=== PATIENT | female | born 1990 | race Caucasian/White ===

== ENCOUNTER 2018-03-26 05:07 | Inpatient (IN) | payer OTHER ==
[2018-03-25 08:36] LABS: RPR Titer ND
[2018-03-25 08:38] LABS: Absolute Lymphocytes (CBC) 1.9 K/uL (0.7-4.9); Absolute Monocytes 0.6 K/uL (0.1-1.3); Absolute Neutrophil 7.3 K/uL (1.8-8.0); Basophils % 0.3 % (0-1.3); Eosinophils % 0.7 % (0-4.4); Lymphocytes % 19.5 % (15.3-44.8); MPV 9.2 fL (7.6-11.3); Monocytes % 6.2 % (3.3-12.3); RBC Red Blood Cell Count 5.53 M/uL (3.86-4.86)
[2018-03-25 08:40] LABS: Urine Appearance TURBID; Urine Bilirubin NEGATIVE (NEG); Urine Blood 2+ (NEG); Urine Color DK YELLOW; Urine Glucose NEGATIVE (NEG); Urine Protein 1+ (NEG); Urine Specific Gravity 1.015 (1.005-1.030)
[2018-03-25 08:45] LABS: Protime INR 0.99
[2018-03-25 08:58] LABS: Blood Morphology Comment NOTED (NOT SEEN); Platelet Estimate ADEQ; Urine White Blood Cell Casts OK
[2018-03-25 08:59] LABS: Anisocytosis 2+; Elliptocytes 1+; Hypochromasia 2+; Polychromasia 1+
[2018-03-25 09:49] LABS: Urine Bacteria LOADED /HPF (<20); Urine Culture Reflex Order REFLEXED
[2018-03-26] MEDS ORDERED: Ringers Lactate 1,000 ML IV PRN (05:56)
[2018-03-26] MEDS ORDERED: FAMOTIDINE 20 MG/2 ML VIAL IV ONE (06:00)
[2018-03-26] MEDS ORDERED: Ringers Lactate 1,000 ML IV SCH (06:00)
[2018-03-26] MEDS ORDERED: NA CIT/CITRIC AC 30 ML ORAL UDC PO ONE (06:13)
[2018-03-26 06:22] VITALS: BMI 39.4
[2018-03-26] MEDS ORDERED: CEFAZOLIN/SWI 2gm 2 GM/20 ML SYR ONE (06:40)
[2018-03-26] MEDS ORDERED: METOCLOPRAMIDE 10 MG/2mL INJ IV SCH (07:00)
[2018-03-26] MEDS ORDERED: CEFAZOLIN 2 GM in NA CHLORIDE 0.9% 100 ML IVPB SCH (07:00)
[2018-03-26] MEDS ORDERED: METHYLERGONOVINE 0.2MG/ML AMP IM ONE ×4 (07:04→20:38)
[2018-03-26] MEDS ORDERED: MORPHINE SULFATE/PF 1 MG/ML (10 ML AMP) ONE ×2 (07:32→07:33)
[2018-03-26] MEDS ORDERED: LIDOCAINE 1% MPF 5 ML VIAL ONE (07:32)
[2018-03-26] MEDS ORDERED: BUPIVACAINE 0.75% (PF) 2 ML SP ONE (07:33)
[2018-03-26] MEDS ORDERED: OXYTOCIN 10 UNIT/ML ML IV ONE (07:43)
[2018-03-26] MEDS ORDERED: EPHEDRINE SULF 50 MG/ML VIAL ONE (08:04)
[2018-03-26] MEDS ORDERED: NS 0.9% VIAL 10 ML ONE (08:04)
[2018-03-26] MEDS ORDERED: Phenylephrine HCl 10 MG/ML 1 ML VIAL ONE ×2 (08:04→08:08)
[2018-03-26] MEDS ORDERED: Oxycodone HCl/Acetaminophen 1 TAB TAB PO PRN (08:10)
[2018-03-26] MEDS ORDERED: ONDANSETRON 4 MG (ODT) TAB PO PRN (08:10)
[2018-03-26] MEDS ORDERED: ACETAMINOPHEN 500 MG TAB PO PRN ×2 (08:10)
[2018-03-26] MEDS ORDERED: KETOROLAC 30 MG/ML INJ IV PRN (08:10)
[2018-03-26] MEDS ORDERED: KETOROLAC 30 MG/ML INJ IM PRN (08:10)
[2018-03-26] MEDS ORDERED: CEFAZOLIN 1GM (PREMIX IV) 1 GM/50 ML BAG IV SCH (08:10)
[2018-03-26] MEDS ORDERED: BISACODYL 10 MG RECTAL SUPP RECT PRN (08:10)
[2018-03-26] MEDS ORDERED: ONDANSETRON 4 MG/2 ML VIAL IV PRN (08:10)
[2018-03-26] MEDS ORDERED: DIPHENHYDRAMINE 25 MG TAB/CAP PO PRN (08:10)
[2018-03-26] MEDS ORDERED: D5LR 1,000 ML with OXYTOCIN 20 UNIT IV SCH ×2 (09:00)
[2018-03-26] MEDS ORDERED: OXYTOCIN/LR 20 UNIT/1,000 ML BAG IV SCH (09:00)
[2018-03-26] MEDS ORDERED: Ringers Lactate 1,000 ML IV ONE (09:08)
[2018-03-26] MEDS ORDERED: PROMETHAZINE 25 MG/ML VIAL IM PRN (09:40)
[2018-03-26] MEDS ORDERED: CEFAZOLIN 2GM (PREMIX IV) 2 GM/50 ML BAG IV SCH (16:00)
[2018-03-26] MEDS ORDERED: CEFAZOLIN 2GM (PREMIX IV) 2 GM/50 ML BAG ONE (16:01)
--- NOTE | 2018-03-26 21:46 | OP ---
Surgeon: Rhett Mack MD Indications: Madeline Lucero, 27-year-old, 2, para 1, previous , for repeat section. Full preoperative counseling concerning procedure and possible complications, including inf ection, blood loss, anesthetic complications, injury to bladder, bowel, ureter, postoperative complic ations, clots, and pneumonia. The patient knows fully well this does not constitute all the possible problems that could occur during or following surgery, and knows with each surgery, risk of complica tions is . Preoperatively, the patient was noted to have anemia, this recurring through e , nonimmune to Rubella, and positive urine culture on 2 occasions, seems to have a resista nt bladder infection. On admission, blood pressures were mildly elevated, protein in the urine, but this could be associated with another infection. She does have a history of preeclampsia with the fi rst . We will watch her blood pressures in the postoperative period, and if they are slight ly elevated, we will start her on phenobarbital for 48 hours. Procedure In Detail: After prepping and draping, time-out was performed. After time-out was perform ed, Pfannenstiel incision was created over previous incision site. Incision carried to the fascia. The fascia was incised and incision carried transversely bilaterally. Anterior fascial plane was dev eloped with both blunt and sharp dissection. The underlying rectus muscles were already . Defect was encountered and peritoneal entry was obtained bluntly. Retraction applied. Low transvers e uterine incision created. An 8- pound 3-ounce female was delivered without difficulties. Apgars 9 and 9. Cord blood specimen was obtained. Placenta was removed manually. Uterus cleared of clot an d blood and exteriorized. Cervical os was dilated with 1 ring clamp. Uterus closed with a running l ocked stitch of 1 chromic followed by 2 [id number]-khkto stitches in the right angle for complete hemo stasis. Estimated blood loss during procedure 750 cc or less. Gutters cleared of clot and blood. U terus was replaced in the peritoneal cavity. Inspection of the suture line showed no further bleedin g. The rectus muscles were reapproximated using 0 Vicryl, 2 stitches. The fascia was closed with 1 PDS running from either angle to the midline. Subcutaneous tissue was closed with 2-0 plain. Absorb able gemma placed and then metal gemma. The patient had been given 2 g of Ancef prophylactically , tolerated all procedures well, transferred back to her room in good condition. Final Diagnoses: 1.Term intrauterine . 2.Repeat section. 3.Spinal block anesthesia. 4.Diastasis recti - corrected. 5.Nonimmune to Rubella. 6.Admission anemia. 7.Recurrent urinary tract infection. FABIO/RANDEE Voice ID: [id number] Report ID: [id number]
[2018-03-27 02:12] LABS: RPR (Rapid Plasma Reagin) NON-REACT (NON-REACT)
[2018-03-27] MEDS: Oxycodone HCl/Acetaminophen 1 TAB TAB PO PRN (07:59)
[2018-03-27 10:44] LABS: Urine Appearance CLOUDY; Urine Bilirubin NEGATIVE (NEG); Urine Blood 1+ (NEG); Urine Color YELLOW; Urine Glucose NEGATIVE (NEG); Urine Protein NEGATIVE (NEG); Urine Specific Gravity <=1.005 (1.005-1.030); Urine Urobilinogen 0.2 mg/dL (0.2-1.0); Urine pH 6.5 (5.0-7.0)
[2018-03-27 11:13] LABS: Urine Bacteria 20-50 /HPF (<20); Urine Culture Reflex Order REFLEXED; Urine White Blood Cell Casts 0-5 /LPF (NONE SEEN)
[2018-03-27] MEDS ORDERED: CIPROFLOXACIN HCL 500 MG TAB PO SCH (12:00)
--- NOTE | 2018-03-27 12:50 | PN ---
Postoperatively she has done quite well. H and H with expected change. Lochia is normal. Vital sig ns show blood pressures returning to normal. No suspicion of pre-eclampsia. IV has been discontinue d and Estrella out. Encourage ambulation, p.o. intake. If she does well, go home tomorrow. No post sp inal block problems. She has had her Tdap immunization. Doing quite well. Full postoperative talk given. We will go over it again tomorrow. FABIO/RANDEE Voice ID: [id number] Report ID: [id number]
--- NOTE | 2018-03-27 12:52 | RAD REPORT ---
EXAM DESCRIPTION: CT - Abdomen Pelvis Wo Contrast - 03/27/2018 12:27 pm CLINICAL HISTORY: Abdominal pain COMPARISON: None TECHNIQUE: Computed axial tomography of the abdomen and pelvis was obtained. IV and oral contrast we re not requested. All CT scans are performed using dose optimization technique as appropriate and may include automated exposure control or mA/KV adjustment according to patient size. FINDINGS: The evaluation of solid organs, vessels and bowel is limited secondary to the lack of con trast administration. A 17 millimeter calculus is present within the right renal pelvis Hounsfield unit 1082. Mild right hy dronephrosis. Several additional tiny right renal calculi are present. 1 millimeter nonobstructing left renal calculus. An air bubble is present within the bladder perhaps secondary to recent instrumentation Liver, spleen, pancreas and adrenals appear grossly normal. Patient is status post recent section. 48 millimeter heterogeneous structure is present with in the endometrium. The appendix is normal. There is no evidence of diverticulitis. IMPRESSION: 17 millimeter calculus right renal pelvis with mild right hydronephrosis 48 millimeter heterogeneous structure within the endometrium probably representing blood/debris secon rosalina to the recent . This should be correlated clinically.
[2018-03-27] MEDS: CIPROFLOXACIN HCL 500 MG TAB PO SCH (15:20)
[2018-03-27] MEDS: IBUPROFEN 200 MG TAB PO PRN (17:30)
--- NOTE | 2018-03-27 20:21 | CON ---
History Of Present Illness: A 27-year-old female status post , postop day 1. The patient s aid during the last , she had a UTI, and she has occasional UTI over 1-2 per year since then . With this , she has been struggling with UTIs from day 1. She has received Rocephin and still had UTI for 9 months. Her latest culture on 03/25/2018 grew Serratia marcescens and E. coli, b oth sensitive to cefepime, ciprofloxacin, and Levaquin. We have cleared this with her community representative a s well as pharmacy to treat with Cipro. Although the baby will be breast feeding, I do not see an is carson with this. I am recommending Cipro for her b.i.d. for 7 days and then we give her is Ceftin 500 once a day for 2 weeks due to the fact that her CT scan showed a 15 mm stone in the right renal pelvi s with slight right hydronephrosis that could be the source of the infection. She also has a 1 mm no nobstructing left renal calculus. Air bubble was present in the bladder, probably due to recent cath eterization. A straight cath was done that was also positive for infection. Her straight cath showe d 1+ blood, 3+ leukocyte esterase, loaded wbc's, 10-20 rbc's, 20-50 bacteria, squamous cell less than 5. Past Medical History: Thalassemia, anemia. Past Surgical History: x2. Medications: Vitamins at home. Allergies: NONE. Social History: No smoking. No alcohol use. No IV drug use. Family History: Mother had kidney stone once. Review of Systems: Ten point review of systems otherwise normal. Physical Examination: General: The patient is lying in bed, in no acute distress. was present in the room, gen carrington on the sofa. Nurse was present in the room with me. Vital Signs: Shows temperature 97.3, pulse rate 93, respirations 20, blood pressure 172/76, 95% satu ration on room air. HEENT: Atraumatic, normocephalic. Neck: Supple. Heart: S1-S2. Abdomen: Soft. Nontender. Extremities: Normal range of motion. Laboratory Data: UA as mentioned above. White count 10.0, H and H 9.9 and 31, platelet count 309. Coags normal. Urine as mentioned above. RPR not detected, nonreactive. Hepatitis B surface antigen pending. Assessment: Right kidney stone, 17 mm right renal pelvis kidney stone with slight hydronephrosis. S he has 2 infections in the urine, Escherichia coli and Serratia. Plan: To treat those with Cipro for 7 days, then Ceftin for once a day to prevent recurrent infectio n for another 2 weeks. Within this 2-week period, she can obtain ESWL to fragment the stone or fully pass the pieces, that will fully reduce the possible source of infection, so far that is the only so urce that we can pinpoint. Thank you very much for this interesting consultation. The patient can follow up with me in the offi ce in about a week. EDWIN/RANDEE Voice ID: [id number] Report ID: [id number]
[2018-03-28] MEDS: IBUPROFEN 200 MG TAB PO PRN (00:12)
[2018-03-28] MEDS: CIPROFLOXACIN HCL 500 MG TAB PO SCH (03:38)
[2018-03-28] MEDS: Oxycodone HCl/Acetaminophen 1 TAB TAB PO PRN (03:46)
[2018-03-28 04:49] LABS: HBsAG Nonreactive (Nonreactive)
[2018-03-28 05:13] VITALS: TEMP 97.6
[2018-03-28] MEDS ORDERED: MEASLES,MUMPS,RUBELLA VAC 0.5ML SQVAC ONE (07:16)
[2018-03-28 07:42] VITALS: BP 150/72
--- NOTE | 2018-03-30 09:47 | PN ---
Preoperatively, the patient again has mildly elevated blood pressures and protein in the urine. She has had recurrent bladder infections. We will get a urine culture. After the surgery if her blood p ressures are still mildly elevated, probably start her on phenobarbital. She has no SPEECH PATHOLOGY ASSISTANT symptoms. B harris looks good. Full preoperative counseling. The patient ready to proceed. FABIO/RANDEE Voice ID: [id number] Report ID: [id number]
== END 2018-03-28 07:35 | disposition home or self-care (01) | DRG 786 ==
LOC: 2ND-WC 05:07
PROVIDERS: ADMIT Specialist; ATTEND Specialist
PROC: 10D00Z1 Extraction of Products of Conception, Low, Open Approach (ICD-10-PCS; principal; 2018-03-26 07:30)
DX: O98.82 Other maternal infectious and parasitic diseases complicating childbirth (principal); O75.3 Other infection during labor; N39.0 Urinary tract infection, site not specified; N13.6 Pyonephrosis; O86.20 Urinary tract infection following delivery, unspecified; O99.02 Anemia complicating childbirth; D64.9 Anemia, unspecified; O71.89 Other specified obstetric trauma; B96.20 Unspecified Escherichia coli [E. coli] as the cause of diseases classified elsewhere; B96.89 Other specified bacterial agents as the cause of diseases classified elsewhere; Z3A.39 39 weeks gestation of pregnancy; Z37.0 Single live birth; O34.211 Maternal care for low transverse scar from previous cesarean delivery; N85.8 Other specified noninflammatory disorders of uterus
CPT/HCPCS: 36415; 74176; 81001; 85014; 85025; 85610; 85730; 86592; 86850; 86900; 86901; 87077; 87086; 87088; 87186; 87340; 88307; 90707; J0690; J2210; J2370; J2405; J2550; J2590; J2765

== ENCOUNTER 2018-04-17 10:29 | Day surgery (SDC) | payer OTHER ==
--- NOTE | 2018-04-16 14:43 | RAD REPORT ---
EXAM DESCRIPTION: RAD - Chest Pa And Lat (2 Views) - 04/16/2018 2:38 pm CLINICAL HISTORY: PREOP Chest pain. COMPARISON: Abdomen Pelvis Wo Contrast dated 03/27/2018 FINDINGS: The lungs are clear. The heart is mildly enlarged in size. No displaced fractures. IMPRESSION: Mild cardiomegaly.
[2018-04-16 14:49] LABS: Urine Appearance CLOUDY; Urine Bilirubin NEGATIVE (NEG); Urine Blood TRACE (NEG); Urine Color YELLOW; Urine Glucose NEGATIVE (NEG); Urine Protein NEGATIVE (NEG); Urine Specific Gravity 1.015 (1.005-1.030); Urine Urobilinogen 0.2 mg/dL (0.2-1.0)
[2018-04-16 14:55] LABS: Urine Microscopic Reflex ORDER UMIC
[2018-04-16 14:57] LABS: Absolute Monocytes 0.5 K/uL (0.1-1.3); Absolute Neutrophil 4.8 K/uL (1.8-8.0); Basophils % 0.5 % (0-1.3); Eosinophils % 3.3 % (0-4.4); Hematocrit 33.1 % (36.0-45.0); Lymphocytes % 34.9 % (15.3-44.8); MPV 9.6 fL (7.6-11.3); Monocytes % 5.6 % (3.3-12.3); RBC Red Blood Cell Count 5.84 M/uL (3.86-4.86)
[2018-04-16 15:10] LABS: Phosphorus 4.2 mg/dL (2.5-4.9); Potassium 3.7 mmol/L (3.5-5.1)
[2018-04-16 15:12] LABS: Protime INR 0.99
[2018-04-16 15:54] LABS: Specific Gravity 1.015 (1.005-1.030); Urine Bacteria 20-50 /HPF (<20); Urine Culture Reflex Order REFLEXED; Urine Mucus 1+ /HPF (NONE SEEN); Urine RBC <5 /HPF (NONE SEEN)
--- NOTE | 2018-04-16 16:59 | EKG ---
Test Date: 2018-04-16 Test Time: 14:23:47 Fruit Cutter: JAIDA MEASUREMENT RESULTS: Intervals: Rate: 72 DE: 108 QRSD: 98 QT: 398 QTc: 435 [place]: P: 33 DE: 108 QRS: 55 T: 50 INTERPRETIVE STATEMENTS: Sinus rhythm with sinus arrhythmia with short DE Otherwise normal ECG No previous ECG available for comparison Electronically Signed On 04-16-18 16:58:28 LEARNING DISABILITIES TEACHER by Alcon Nath
[2018-04-16 22:10] LABS: Platelet Estimate ADEQ; Urine White Blood Cell Casts OK
[2018-04-16 22:11] LABS: Anisocytosis 1+; Blood Morphology Comment NOTED (NOT SEEN); Hypochromasia 1+; Ovalocytes 1+; Poikilocytosis 1+
[2018-04-17] MEDS ORDERED: Ringers Lactate 1,000 ML IV ONE ×2 (10:54→14:19)
[2018-04-17] MEDS ORDERED: GENTAMICIN 100 MG/100 ML BAG 100 ML IV ONE (10:55)
[2018-04-17 11:02] LABS: Specific Gravity 1.015 (1.005-1.030)
--- NOTE | 2018-04-17 11:38 | RAD REPORT ---
EXAM DESCRIPTION: RAD - Abdomen 1 View (KUB) - 04/17/2018 11:33 am CLINICAL HISTORY: PRE-OP Pain COMPARISON: Abdomen Pelvis Wo Contrast dated 03/27/2018 FINDINGS: The bowel gas pattern is non-obstructive. No evidence of free air or pneumatosis. Large 2 cm stone in the right renal pelvis. Tiny punctate calculus may be present in the inferior right kidne y as well.
[2018-04-17] MEDS ORDERED: FENTANYL CITR 100 MCG/2 ML ONE (12:18)
[2018-04-17] MEDS ORDERED: MIDAZOLAM HCL 2 MG/2 ML INJ ONE (12:18)
[2018-04-17] MEDS ORDERED: PROPOFOL 200 MG/20 ML VIAL IV ONE (12:18)
[2018-04-17] MEDS ORDERED: LIDOCAINE 2% MPF 5 ML VIAL ONE (12:19)
[2018-04-17] MEDS ORDERED: ONDANSETRON 4 MG/2 ML VIAL ONE (12:21)
[2018-04-17] MEDS: MEPERIDINE HCL 25 MG/0.5 ML ONE ×2 (14:04→14:16)
[2018-04-17 15:31] VITALS: BP 121/71; TEMP 98.2; O2SAT 98
[2018-04-17] MEDS ORDERED: CODEINE 30MG/APAP 300MG TAB ONE (15:52)
[2018-04-17 16:45] LABS: Urine Bacteria >50 /HPF (<20); Urine RBC LOADED /HPF (NONE SEEN)
[2018-04-17 16:46] LABS: Urine Amorphous Sediment 1+ /HPF (NONE SEEN); Urine Culture Reflex Order NOT NEEDED
== END 2018-04-17 16:05 | disposition home or self-care (01) ==
LOC: OR 10:29
PROVIDERS: ATTEND Urology
PROC: 0T768DZ Dilation of Right Ureter with Intraluminal Device, Via Natural or Artificial Opening Endoscopic (ICD-10-PCS; 2018-04-17)
PROC: 0TF3XZZ Fragmentation in Right Kidney Pelvis, External Approach (ICD-10-PCS; principal; 2018-04-17 12:30)
DX: O90.89 Other complications of the puerperium, not elsewhere classified (principal); N20.0 Calculus of kidney; Q62.39 Other obstructive defects of renal pelvis and ureter
CPT/HCPCS: 36415; 50590; 71046; 74018; 80048; 81003; 81015; 81025; 84100; 84550; 84702; 84703; 85025; 85610; 85730; 87086; 87088; 93005; J1580; J2175; J2250; J2405; J2704; J3010; Q9967

== ENCOUNTER 2024-03-27 12:17 | Emergency (ER) | payer SELFPAY ==
--- OUTSIDE RECORDS SUMMARY | 2024-03-27 12:20 | XMS REPORT | Continuity of Care Document ---
Author Name Unknown Address [address] [facility] [address] [place] [address] [facility] thconnect Address [address] [facility] [address] [place] [address] Care Team Providers Care Hotel Or Motel Receptionist Name Role Phone Juan Zavaleta Attending Clinician Unavailable Juan Zavaleta Admitting Clinician Unavailable Payers Payer Name Policy Type Policy Number Effective Date Expirati on Date Source [facility] [id number] 2022 00:00:00 Allergies, Adverse Reactions, Alerts Allergy Name Allergy Type Status Severity Reaction(s) Onset Date Inactive Date Treating Clinician Comments Source No Known Allergie s DA Active U 06-02 00:00: 00 [facility] Social History Social Habit Start Date Stop Date Quantity Comments Source time of call 2021-11-03 09:00:48 2021-11-03 09:00:48 11/03/2021 9:00 [facility] Procedures Procedure Date / Time Performed Performing Clinicia n Source [id number] 2022-06-02 00:00:00 [email or web address] [facility] [id number] 2022-06-02 00:00:00 [email or web address] [facility] Encounters Start Date/Time End Date/Time Encounter Type Admission Type Attending Clinicians Care Facility Care Department Encounter ID Source 2022-06-01 12:22:16 Outpatient [facility] [id number] [facility] 2022-05-23 12:49:52 Outpatient [facility] [id number] [facility] 2022-06-02 12:02:00 2022-06-04 13:03:00 Inpatient EM Juan Zavaleta [facility] OBPP [id number] 45 [facility] are [facility] Results Test Description Test Time Test Comments Results Result Co mments Source RAPID PLASMA [id number] 09:08:00* Test Item Value Reference Range Interpretation Comme nts RAPID PLASMA REAGIN (test co de = RPR) NEGATIVE NEGATIVE CBC W/AUTO [id number] 06:51:00* Test Item Value Reference Range Interpretation Comme nts WHITE BLOOD CELL (test code = WBC) 11.0 x10 3/uL 3.2-11.5 N RED BLOOD CELL (test code = RBC) 4.30 x10(6)/m 3.70-5.10 N HEMOGLOBIN (test code = HGB) 8.2 g/dL 12.0-15.0 L HEMATOCRIT (test code = HCT) 26.2 % 35.7-44.8 L MEAN CELL VOLUME (test code = MCV) 61 fL 80-100 L MEAN CELL HGB (test code = MCH) 19.1 pg 26.2-33.8 L MEAN CELL HGB CONCENTRATION (test code = MCHC) 31.3 g/dL 30.0-34.0 N RED CELL DISTRIBUTION WIDTH (test code = RDW) 17.1 % 11.3-14.5 H PLATELET COUNT (test code = PLT) 217 x10 3/uL 130-408 N MEAN PLATELET VOLUME (test code = MPV) Test not performed fL 8.6-12.6 NEUTROPHIL % (test code = NT%) 72.2 % 40.0-70.0 H IMMATURE GRANULOCYTE % (test code = IG%) 0.4 % 0.0-2.0 N LYMPHOCYTE % (test code = LY%) 17.7 % 20-40 L MONOCYTE % (test code = MO%) 9.0 % 1-10 N EOSINOPHIL % (test code = EO%) 0.4 % 0.0-5.0 N BASOPHIL % (test code = BA%) 0.3 % 0.0-1.0 N NUCLEATED RBC % (test code = NRBC%) 0.0 % 0.0-0.9 N NEUTROPHIL # (test code = NT#) 8.0 x10 3/uL 1.6-7.2 H LYMPHOCYTE # (test code = LY#) 1.95 x10 3/uL 1.1-2.7 N MONOCYTE # (test code = MO#) 1.0 x10 3/uL 0.3-0.8 H EOSINOPHIL # (test code = EO#) 0.0 x10 3/uL 0.0-0.5 N BASOPHIL # (test code = BA#) 0.0 x10 3/uL 0.0-0.1 N AG HEPATITIS B [id number] 15:10:00* Test Item Value Reference Range Interpretation Comme nts AG HEPATITIS B SURFACE (test code = HBSAG) NEGATIVE NEGATIVE AB HIV 1 15:10:00* Test Item Value Reference Range Interpretation Comme nts AB HIV 1 2 (test code = [id number]) NEGATIVE NEGATIVE URIC [id number] 15:02:00* Test Item Value Reference Range Interpretation Comme nts URIC ACID (test code = URIC) 4.6 mg/dl 2.6-7.2 N COMPREHENSIVE METABOLIC [id number] 15:02:00* Test Item Value Reference Range Interpretation Comme nts SODIUM (test code = NA) 135 mmol/L 135-145 N POTASSIUM (test code = K) 4.6 mmol/L 3.6-5.0 N CHLORIDE (test code = CL) 104 mmol/L 101-111 N CARBON DIOXIDE (test code = CO2) 18 mmol/L 21-31 L GLUCOSE (test code = GLU) 62 mg/dl 70-100 L BLOOD UREA NITROGEN (test code = BUN) 5 mg/dl 6-20 L GLOMERULAR FILTRATION RATE (test code = GFR) >=60 max estimate >60 The Glomerular Filtration Rate is a calculated parameterbased on serum Creatinine, patient age and sex. GFR valuesless than 60 mL/min/1.73 square meters are indicative ofChronic Kidney Disease. Values less than 15 mL/min/1.73square meters indicate Kidney failure. The calculation forGFR is based on the CKD-EPI (2020) calculation. This formulais race indifferent and is the recommended formula for GFRby the National Kidney Foundation for Adults.The GFR will not calculate if the sex is unknown or if thepatient's age is <18 years. CREATININE (test code = CREAT) 0.55 mg/dL 0.44-1.03 N TOTAL PROTEIN (test code = PROT) 7.0 g/dL 6.7-8.2 N ALBUMIN (test code = ALB) 3.5 g/dL 3.2-5.5 N CALCIUM (test code = CA) 9.5 mg/dL 8.5-10.5 N BILIRUBIN TOTAL (test code = BILT) 0.90 mg/dL 0.2-1.3 N SGOT/AST (test code = AST) 27 U/L 10-42 N SGPT/ALT (test code = ALT) 14 U/L 10-60 N ALKALINE PHOSPHATASE (test code = ALKP) 103 U/L 42-121 N INDEX HEMOLYSIS (test code = HEMINDEX) 1 Index/DL See_Comment [Automated messa ge] The system which generated this result transmitted reference range: 1 NORMAL. The reference range was not used to interpret this result as normal/abnormal. INDEX ICTERIC (test code = ICTINDEX) 1 Index/DL See_Comment [Automated messa ge] The system which generated this result transmitted reference range: 1 NORMAL. The reference range was not used to interpret this result as normal/abnormal. INDEX LIPEMIA (test code = LIPINDEX) 0 Index/DL See_Comment [Automated messa ge] The system which generated this result transmitted reference range: 1 NORMAL. The reference range was not used to interpret this result as normal/abnormal. CBC W/AUTO [id number] 14:07:00* Test Item Value Reference Range Interpretation Comme nts WHITE BLOOD CELL (test code = WBC) 12.0 x10 3/uL 3.2-11.5 H RED BLOOD CELL (test code = RBC) 6.00 x10(6)/m 3.70-5.10 H HEMOGLOBIN (test code = HGB) 11.3 g/dL 12.0-15.0 L HEMATOCRIT (test code = HCT) 35.9 % 35.7-44.8 N MEAN CELL VOLUME (test code = MCV) 60 fL 80-100 L MEAN CELL HGB (test code = MCH) 18.8 pg 26.2-33.8 L MEAN CELL HGB CONCENTRATION (test code = MCHC) 31.5 g/dL 30.0-34.0 N RED CELL DISTRIBUTION WIDTH (test code = RDW) 18.2 % 11.3-14.5 H PLATELET COUNT (test code = PLT) 287 x10 3/uL 130-408 N MEAN PLATELET VOLUME (test code = MPV) Test not performed fL 8.6-12.6 NEUTROPHIL % (test code = NT%) 77.8 % 40.0-70.0 H IMMATURE GRANULOCYTE % (test code = IG%) 0.4 % 0.0-2.0 N LYMPHOCYTE % (test code = LY%) 15.7 % 20-40 L MONOCYTE % (test code = MO%) 5.6 % 1-10 N EOSINOPHIL % (test code = EO%) 0.3 % 0.0-5.0 N BASOPHIL % (test code = BA%) 0.2 % 0.0-1.0 N NUCLEATED RBC % (test code = NRBC%) 0.0 % 0.0-0.9 N NEUTROPHIL # (test code = NT#) 9.3 x10 3/uL 1.6-7.2 H LYMPHOCYTE # (test code = LY#) 1.89 x10 3/uL 1.1-2.7 N MONOCYTE # (test code = MO#) 0.7 x10 3/uL 0.3-0.8 N EOSINOPHIL # (test code = EO#) 0.0 x10 3/uL 0.0-0.5 N BASOPHIL # (test code = BA#) 0.0 x10 3/uL 0.0-0.1 N
--- NOTE | 2024-03-27 12:28 | EDPHYS ---
Physician Documentation [facility] Name: Madeline To Age: 33 yrs Sex: Female : 1990 Arrival Date: 03/27/2024 Time: 12:17 Bed 20 Private MD: ED Physician Celso Bernabe HPI: 03/27 12:25 This 33 yrs old Female presents to ER via Unassigned with complaints of Toothache, sp3 Facial Swelling, Pain - facial. 12:25 33-year-old female with no significant past medical history presents with left-sided sp3 facial pain and numbness and swelling from dental etiology. Patient has been seeing dentist however they were not able to "get her numb enough to do the root canal now they are sending you to another specialist". She has that follow-up appointment 2 days from now on Monday. She is currently on amoxicillin. She denies any fever, headache, neck pain, neck stiffness, chest pain, shortness of breath, or any other signs or symptoms on ROS at this time.. 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 - Infectious Disease History:: Denies. - Social history:: Smoking status: Patient denies any tobacco usage or history of. ROS: 12:26 Constitutional: Negative for fever, chills, and weight loss, Eyes: Negative for injury, sp3 pain, redness, and discharge, Neck: Negative for injury, pain, and swelling, Cardiovascular: Negative for chest pain, palpitations, and edema, Respiratory: Negative for shortness of breath, cough, wheezing, and pleuritic chest pain, Abdomen/GI: Negative for abdominal pain, nausea, vomiting, diarrhea, and constipation, Back: Negative for injury and pain, MS/Extremity: Negative for injury and deformity, Skin: Negative for injury, rash, and discoloration, Neuro: Negative for headache, weakness, numbness, tingling, and seizure, Psych: Negative for depression, anxiety, suicide ideation, homicidal ideation, and hallucinations, Allergy/Immunology: Negative for hives, rash, and allergies, Endocrine: Negative for neck swelling, polydipsia, polyuria, polyphagia, and marked weight changes, 12:26 All other systems are negative, Exam: 12:26 Constitutional: This is a well developed, well nourished patient who is awake, alert, sp3 and in no acute distress. Eyes: Pupils equal round and reactive to light, extra-ocular motions intact. Lids and lashes normal. Conjunctiva and sclera are non-icteric and not injected. Cornea within normal limits. Periorbital areas with no swelling, redness, or edema. Neck: Trachea midline, no thyromegaly or masses palpated, and no cervical lymphadenopathy. Supple, full range of motion without nuchal rigidity, or vertebral point tenderness. No Meningismus. Chest/axilla: Normal chest wall appearance and motion. Nontender with no deformity. No lesions are appreciated. Cardiovascular: Regular rate and rhythm with a normal S1 and S2. No gallops, murmurs, or rubs. Normal PMI, no JVD. No pulse deficits. Respiratory: Lungs have equal breath sounds bilaterally, clear to auscultation and percussion. No rales, rhonchi or wheezes noted. No increased work of breathing, no retractions or nasal flaring. Abdomen/GI: Soft, non-tender, with normal bowel sounds. No distension or tympany. No guarding or rebound. No evidence of tenderness throughout. Back: No spinal tenderness. No costovertebral tenderness. Full range of motion. Skin: Warm, dry with normal turgor. Normal color with no rashes, no lesions, and no evidence of cellulitis. MS/ Extremity: Pulses equal, no cyanosis. Neurovascular intact. Full, normal range of motion. Neuro: Awake and alert, GCS 15, oriented to person, place, time, and situation. Cranial nerves II-XII grossly intact. Motor strength 5/5 in all extremities. Sensory grossly intact. Cerebellar exam normal. Normal gait. Psych: Awake, alert, with orientation to person, place and time. Behavior, mood, and affect are within normal limits. 12:26 ENT: Left-sided facial pain and swelling consistent with poor dentition on internal exam as well.. Vital Signs: 12:27 BP 148 / 104; Pulse 95; Resp 18 S; Temp 98.2(O); Pulse Ox 100% on R/A; aa5 MDM: 12:21 Medical Screening Exam initiated sp3 12:26 Data reviewed: vital signs, nurses notes. ED course: 33-year-old female with facial sp3 swelling and infection from dental etiology/source. Will change from amoxicillin to Augmentin and prescribe tramadol. Ketorolac 60 mg IM here in the ED since patient is driving cannot administer narcotic. Follow-up with existing appointment in 48 hours. No airway compromise, signs of sepsis, abnormal vital signs or any other critical signs or symptoms at this time.. Administered Medications: 12:45 Drug: Ketorolac IM 60 mg IM once Route: IM; Site: left gluteus; bp 13:01 Follow up: Response: No adverse reaction bp Disposition Summary: 03/27/24 12:27 Discharge Ordered Notes: Location: Home sp3 Condition: Stable sp3 Diagnosis - Dental infection, dental abscess, dental pain sp3 Followup: sp3 - With: Private Physician - When: Upon discharge from the Emergency Department - Reason: Recheck today's complaints, Continuance of care Discharge Instructions: - Discharge Summary Sheet sp3 - Dental Abscess sp3 Forms: - Medication Reconciliation Form sp3 - Antibiotic Education sp3 - Prescription Opioid Use sp3 - Patient Portal Instructions sp3 - Leadership Thank You Letter sp3 Prescriptions: - Augmentin 875-125 mg Oral Tablet - take 1 tablet ORAL route every 12 hours for 10 days; 20 tablet; Refills: 0, sp3 Product Selection Permitted - Tramadol 50 mg Oral Tablet - take 1 tablet ORAL route every 8 hours as needed; 12 tablet; Refills: 0, sp3 Product Selection Permitted Signatures: Nikkie Corey RN RN aa5 Dread Batista RN RN bp Celso Bernabe MD MD sp3
--- NOTE | 2024-03-27 12:28 | ER ---
Nurse's Notes [facility] Name: Madeline To Age: 33 yrs Sex: Female : 1990 Arrival Date: 03/27/2024 Time: 12:17 Bed 20 Private MD: Diagnosis: Dental infection, dental abscess, dental pain Presentation: 03/27 12:27 Chief complaint: Patient states: "I am having a toothache that started on Monday and aa5 I saw the dentist on Monday and I was prescribed antibiotics but now it's getting more painful and more swollen". Pt reports has scheduled appointment with specialist for 03/29/2024. Left jaw/cheek swelling noted. Coronavirus screen: At this time, the client does not indicate any symptoms associated with coronavirus-19. Ebola Screen: Patient denies travel to an Ebola-affected area in the 21 days before illness onset. Initial Sepsis Screen: Does the patient meet any 2 criteria? HR > 90 bpm. Does the patient have a suspected source of infection? No. Patient's initial sepsis screen is negative. Risk Assessment: Do you want to hurt yourself or someone else? Patient reports no desire to harm self or others. Onset of symptoms was March 2024. 12:27 Acuity: REBECA 4 aa5 12:27 Method Of Arrival: Ambulatory aa5 Triage Assessment: 12:30 General: Appears in no apparent distress. uncomfortable, obese, Behavior is calm, bp cooperative, appropriate for age. Pain: Complains of pain in mouth. EENT: Reports pain in left jaw. Neuro: No deficits noted. Cardiovascular: No deficits noted. Respiratory: No deficits noted. GI: No signs and/or symptoms were reported involving the gastrointestinal system. : No signs and/or symptoms were reported regarding the genitourinary system. Derm: No deficits noted. Musculoskeletal: No deficits noted. [employer]: 12:31 LMP 03/06/2024, unknown aa5 Historical: - Allergies: 12:31 No Known Allergies; aa5 - PMHx: 12:31 None; aa5 - PSHx: 12:31 section; aa5 - Immunization history:: Adult Immunizations unknown. - Infectious Disease History:: Denies. - Social history:: Smoking status: Patient denies any tobacco usage or history of. Screenin:30 [facility] ED Fall Risk Assessment (Adult) History of falling in the last 3 months, bp including since admission No falls in past 3 months (0 pts) Confusion or Disorientation No (0 pts) Intoxicated or Sedated No (0 pts) Impaired Gait No (0 pts) Mobility Assist Device Used No (0 pt) Altered Elimination No (0 pt) Score/Fall Risk Level 0 - 2 = Low Risk Oriented to surroundings. Abuse screen: Denies threats or abuse. Denies injuries from another. Nutritional screening: No deficits noted. Tuberculosis screening: No symptoms or risk factors identified. Assessment: 12:30 General: Appears in no apparent distress. uncomfortable, obese, Behavior is calm, bp cooperative, appropriate for age. Vital Signs: 12:27 BP 148 / 104; Pulse 95; Resp 18 S; Temp 98.2(O); Pulse Ox 100% on R/A; aa5 ED Course: 12:20 Patient arrived in ED. im 12:21 Celso Bernabe MD is Attending Physician. sp3 12:21 Arm band placed on Patient placed in an exam room, on a stretcher. ll1 12:28 Dread Batista, RN is Primary Nurse. bp 12:30 Triage completed. aa5 12:30 Patient has correct armband on for positive identification. bp 13:03 No provider procedures requiring assistance completed. Patient did not have IV access bp during this emergency room visit. Administered Medications: 12:45 Drug: Ketorolac IM 60 mg IM once Route: IM; Site: left gluteus; bp 13:01 Follow up: Response: No adverse reaction bp Medication: 12:30 VIS not applicable for this client. bp Outcome: 12:27 Discharge ordered by . sp3 13:03 Discharged to home ambulatory, bp 13:03 Condition: stable 13:03 Discharge instructions given to patient, Instructed on discharge instructions, follow up and referral plans. medication usage, Demonstrated understanding of instructions, follow-up care, medications, Prescriptions given X 2, 13:04 Patient left the ED. bp Signatures: Nikkie Corey RN RN aa5 Dread Batista RN RN bp Lewis, Lynsay, RN RN ll1 Celso Bernabe MD MD sp3 Kaci Puente im Corrections: (The following items were deleted from the chart) 12:31 12:27 Initial Sepsis Screen: Does the patient meet any 2 criteria? No. Patient's aa5 initial sepsis screen is negative. Does the patient have a suspected source of infection? No. Patient's initial sepsis screen is negative. aa5
[2024-03-27] MEDS ORDERED: KETOROLAC 30 MG/ML INJ ONE (12:55)
[2024-03-29 02:14] VITALS: BP 148/104; TEMP 98.2; O2SAT 100
== END 2024-03-27 13:04 | disposition home or self-care (01) ==
LOC: ER 12:17
DX: K04.7 Periapical abscess without sinus (principal); K08.89 Other specified disorders of teeth and supporting structures
CPT/HCPCS: 96372; 99284